=== PATIENT | male | born 1975 | race Caucasian/White ===

== ENCOUNTER 2021-05-01 18:19 | Emergency (ER) | payer OTHER ==
[~2021-05-01] VITALS: Ht 170 cm; Wt 69.3 kg
--- NOTE | 2021-05-01 18:45 | ED Cough/URI ---
General Chief Complaint: Cough/Cold/Flu Symptoms Stated Complaint: HEADACHE/FEVER/DIARRHEA/NO TASTE OR SMELL Nursing Triage Note: Pt ambulatory to ER with c/o fever, headache, no appetite, loss of taste and smell, and diarrhea. Symptoms began this past sunday. Source: patient History of Present Illness Date Seen by Provider: May 01, 2021 Time Seen by Provider: 18:25 Initial Comments PT ARRIVES VIA POV FROM HOME STATES HE HAS BEEN SICK SINCE Sunday04/25/21 C/O SUBJECTIVE FEVER C/O VERY SLIGHT COUGH C/O HEADACHE C/O LOSS OF TASTE AND SMELL C/O DIARRHEA--A FEW TIMES, BUT NONE TODAY C/O DECREASED APPETITE, BUT IS STILL EATING AND DRINKING NO SHORTNESS OF BREATH NO CHEST PAIN NO NAUSEA/VOMITING PT HAS NOT TAKEN ANYTHING FOR SYMPTOMS AT ANY TIME SYMPTOMS NO DIFFERENT TONIGHT IN ANY WAY HAS NOT SOUGHT CARE UNTIL TONIGHT STATES "I JUST WANTED TO GET TESTED" PT HAS NOT HAD COVID-19 VACCINE IS UNAWARE OF ANY SICK CONTACTS, 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, DESPITE BEING SICK PT LIVES WITH HIS MOTHER AND SISTER PCP: VICK HOLLIDAY Review of Systems Review of Systems Constitutional: see HPI, fever EENTM: see HPI, nose congestion Respiratory: see HPI, cough; No short of breath Cardiovascular: no symptoms reported Gastrointestinal: see HPI, diarrhea, loss of appetite; No nausea, No vomiting Genitourinary: no symptoms reported Musculoskeletal: no symptoms reported Skin: no symptoms reported Psychiatric/Neurological: See HPI, Headache Hematologic/Lymphatic: No Symptoms Reported Immunological/Allergic: no symptoms reported Past Wntrdon-Dvkwlo-Lkgsoh Hx Patient Social History Tobacco Use?: Yes (SMOKED 1 PPD) Tobacco type used: Cigarettes Smoking Status: Former Smoker Smokeless Tobacco Frequency: Current Everyday User Use of E-Cig and/or Vaping dev: No Use of E-Cig and/or Vaping Luisito: Never a User Substance use?: No Alcohol Use?: No Pt feels they are or have been: No Past Medical History Surgery/Hospitalization HX: none Surgeries: No Respiratory: No Cardiac: No Neurological: No Genitourinary: No Gastrointestinal: No Musculoskeletal: No Endocrine: No HEENT: No Cancer: No Psychosocial: No Integumentary: No Blood Disorders: No Physical Exam Vital Signs - First Documented 05/01/21 18:25 Temp 37.8 Pulse 123 Resp 16 B/P (MAP) 125/96 (106) Pulse Ox 99 O2 Delivery Room Air Capillary Refill : Less Than 3 Seconds Height: '" Weight: lbs. oz. 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, no motor/sensory deficits, alert, normal mood/affect, oriented x 3 Skin: normal color, warm/dry Progress/Results/Core Measures Suspected Sepsis SIRS Temperature: Pulse: 123 Respiratory Rate: 16 Blood Pressure 125 /96 Mean: 106 Results/Orders Lab Results Laboratory Tests Test 05/01/21 18:31 Range/Units Influenza Type A (RT-PCR) Not Detected Not Detecte Influenza Type B (RT-PCR) Not Detected Not Detecte SARS-CoV-2 RNA (RT-PCR) Detected H Not Detecte Vital Signs/I&O 05/01/21 05/01/21 18:25 19:51 Temp 37.8 37.8 Pulse 123 105 Resp 16 16 B/P (MAP) 125/96 (106) 138/78 Pulse Ox 99 99 O2 Delivery Room Air Room Air Capillary Refill : Less Than 3 Seconds Blood Pressure Mean: 106 Progress Note : Progress Note PLACED IN ISOLATION ROOM PPE WORN AT ALL TIMES COVID-19 TESTING PERFORMED NO COUGH NO DYSPNEA NO HYPOXIA NO FEVER NO ABNORMAL VITALS PT DOES NOT MEET CRITERIA FOR REGEN-COV INFUSION, BASED ON BMI < 25, NO CHRONIC ILLNESSES/CO-MORBIDITIES Departure Impression Primary Impression: COVID-19 virus infection Disposition: 01 HOME, SELF-CARE Condition: Stable Departure-Patient Inst. Decision time for Depature: 19:37 Patient Instructions: COVID-19 ED, Recovery After COVID-19, Preventing the Spread of an Infectious Disease Add. Discharge Instructions: QUARANTINE YOURSELF AND ALL HOUSEHOLD AND CLOSE CONTACTS FOR 2 WEEKS TYLENOL 1 GRAM/ MOTRIN 800 MG 4 TIMES A DAY FOR PAIN OR FEVER OVER THE COUNTER MEDICATIONS SUCH MUCINEX DM FOR COUGH AND CONGESTION LOTS OF CLEAR LIQUIDS--WATER, BROTH, JELLO, GATORADE FOLLOW UP WITH YOUR DR IN 5-7 DAYS IF NO BETTER, RETURN TO ER IF YOU DEVELOP WOR SENING OF SYMPTOMS, SUCH DIFFICULTY BREATHING All discharge instructions reviewed with patient and/or family. Voiced underst anding. RADHAMES BOSTON DO May 01, 2021 18:45
[2021-05-01 19:51] VITALS: BP 138/78
== END 2021-05-01 19:52 | disposition home or self-care (01) ==
LOC: ER 18:22
DX: U07.1 COVID-19 (principal); F17.210 Nicotine dependence, cigarettes, uncomplicated
CPT/HCPCS: 87636; 99282